=== PATIENT | male | born 1970 | race Caucasian/White ===

== ENCOUNTER 2020-06-10 20:36 | Inpatient (IN) ==
[2020-06-10] MEDS ORDERED: ACETAMINOPHEN 500 MG TABLET ONE (21:06)
[2020-06-10] MEDS ORDERED: CLINDAMYCIN INJ 600 MG in PREMIX 1 EACH IV STA (21:09)
[2020-06-10] MEDS ORDERED: ACETAMINOPHEN 500 MG TABLET PO STA (21:15)
[2020-06-10 21:49] LABS: Basophils # 0.1 10*3/uL (0.0-0.2); Basophils % 0.4 % (0.0-0.8); Hematocrit 43.2 VOL% (42.0-52.0); Hemoglobin 14.8 GM/DL (14.0-18.0); Immature Granulocytes % 0.4 %; Immature Granulocytes Absolute 0.06 #; Lymphocytes # 1.2 10*3/uL (1.4-4.0); Lymphocytes % 8.7 % (21.2-54.2); Mean Corpuscular HGB Conc 34.3 GM/DL (32-36); Mean Corpuscular Volume 94.5 FL (87-102); Monocytes % 4.9 % (1.7-12.7); Neutrophils % 85.6 % (38.7-73.9); Platelet Count 242 T/CUMM (130-400); Red Blood Count 4.57 MC/CUMM (3.8-5.5)
[2020-06-10 22:18] LABS: Albumin 3.8 G/DL (3.4-5.0); Bilirubin,Total 0.6 MG/DL (0.2-1.0); Calcium 8.6 MG/DL (8.5-10.1); Osmolality,Calculated 275.8 MOS/KG (273-304); Total Protein 7.1 G/DL (6.4-8.3)
[2020-06-10] MEDS ORDERED: VANCOMYCIN INJ 1,000 MG in SODIUM CHLORIDE 0.9% 250 ML IV STA (23:47)
[2020-06-10] MEDS ORDERED: VANCOMYCIN 1,000 MG VIAL ONE (23:48)
[2020-06-11] MEDS ORDERED: DEXTROSE 50% 25 GM/50 ML VIAL IV PRN (00:01)
[2020-06-11] MEDS ORDERED: GLUCAGON 1 MG VIAL IM PRN (00:01)
[2020-06-11] MEDS ORDERED: ALBUTEROL 2.5 MG/3 ML NEB RESP TX PRN (00:04)
[2020-06-11] MEDS ORDERED: TOPIRAMATE 100 MG TABLET PO PRN (00:04)
[2020-06-11] MEDS ORDERED: IBUPROFEN 600 MG TABLET ONE (00:12)
[2020-06-11] MEDS ORDERED: IBUPROFEN 600 MG TABLET PO STA (00:15)
[2020-06-11] MEDS: SODIUM CHLORIDE 0.9% 1,000 ML IV SCH ×3 (03:05→14:53)
[2020-06-11] MEDS: oxyCODONE/ACETAMINOPHEN 5-325 MG TABLET PO PRN ×3 (03:26→19:55)
[2020-06-11] MEDS: CLINDAMYCIN 150 MG CAPSULE PO SCH ×3 (05:55→21:45)
[2020-06-11 06:33] LABS: Basophils % 0.2 % (0.0-0.8); Eosinophils % 0.2 % (0.00-10.9); Hematocrit 40.5 VOL% (42.0-52.0); Hemoglobin 13.8 GM/DL (14.0-18.0); Immature Granulocytes % 0.5 %; Immature Granulocytes Absolute 0.06 #; Lymphocytes # 2.3 10*3/uL (1.4-4.0); Lymphocytes % 18.1 % (21.2-54.2); Mean Corpuscular HGB Conc 34.1 GM/DL (32-36); Mean Corpuscular Volume 94.6 FL (87-102); Mean Platelet Volume 11.2 FL (9.6-12.0); Platelet Count 196 T/CUMM (130-400); Red Blood Count 4.28 MC/CUMM (3.8-5.5); Red Cell Distribution Width 13.2 % (9.3-17.3); White Blood Count 12.8 T/CUMM (4-12)
[2020-06-11 06:47] LABS: Calcium 8.5 MG/DL (8.5-10.1); Osmolality,Calculated 279.7 MOS/KG (273-304)
[2020-06-11] MEDS: FLUTICASONE/SALMETEROL 250-50 DISKUS 14 DOSE INH SCH ×2 (09:23→20:05)
[2020-06-11] MEDS: ENOXAPARIN 40 MG/0.4 ML SYRINGE SUBCUT SCH (09:23)
[2020-06-11] MEDS: PANTOPRAZOLE 40 MG TABLET PO SCH (09:23)
[2020-06-11] MEDS: VANCOMYCIN INJ 1,500 MG in SODIUM CHLORIDE 0.9% 500 ML IV SCH ×2 (09:23→20:02)
[2020-06-11] MEDS: ACETAMINOPHEN 500 MG TABLET PO PRN ×2 (09:42→18:21)
[2020-06-11] MEDS: LEVOFLOXACIN INJ 750 MG in PREMIX 1 EACH IV SCH (16:33)
[2020-06-11] MEDS: ONDANSETRON 4 MG/2 ML VIAL IV PRN (20:01)
[2020-06-12] MEDS: SODIUM CHLORIDE 0.9% 1,000 ML IV SCH ×2 (03:44→16:27)
[2020-06-12] MEDS: oxyCODONE/ACETAMINOPHEN 5-325 MG TABLET PO PRN ×2 (05:04→14:59)
[2020-06-12 05:43] LABS: Basophils % 0.3 % (0.0-0.8); Eosinophils % 0.2 % (0.00-10.9); Hematocrit 40.8 VOL% (42.0-52.0); Hemoglobin 13.6 GM/DL (14.0-18.0); Immature Granulocytes % 0.5 %; Immature Granulocytes Absolute 0.06 #; Lymphocytes # 1.6 10*3/uL (1.4-4.0); Lymphocytes % 13.7 % (21.2-54.2); Mean Corpuscular HGB Conc 33.3 GM/DL (32-36); Mean Corpuscular Volume 96.2 FL (87-102); Mean Platelet Volume 11.1 FL (9.6-12.0); Monocytes % 5.6 % (1.7-12.7); Neutrophils % 79.7 % (38.7-73.9); Platelet Count 184 T/CUMM (130-400); Red Blood Count 4.24 MC/CUMM (3.8-5.5); Red Cell Distribution Width 13.2 % (9.3-17.3); White Blood Count 11.7 T/CUMM (4-12)
[2020-06-12 06:17] LABS: Calcium 8.8 MG/DL (8.5-10.1); Osmolality,Calculated 276.5 MOS/KG (273-304)
[2020-06-12] MEDS: CLINDAMYCIN 150 MG CAPSULE PO SCH (06:46)
[2020-06-12] MEDS ORDERED: ALBUTEROL 2.5 MG/3 ML NEB RESP TX ONE (08:00)
[2020-06-12] MEDS ORDERED: GABAPENTIN 400 MG CAPSULE PO ONE (08:00)
[2020-06-12] MEDS ORDERED: SCOPOLAMINE 1.5 MG PATCH TRANSDERM ONE (08:00)
[2020-06-12] MEDS ORDERED: DIAZEPAM 5 MG TABLET PO ONE (08:00)
[2020-06-12] MEDS: FLUTICASONE/SALMETEROL 250-50 DISKUS 14 DOSE INH SCH ×2 (09:39→21:48)
[2020-06-12] MEDS: VANCOMYCIN INJ 1,500 MG in SODIUM CHLORIDE 0.9% 500 ML IV SCH ×2 (09:39→20:59)
[2020-06-12] MEDS: ENOXAPARIN 40 MG/0.4 ML SYRINGE SUBCUT SCH (10:01)
[2020-06-12] MEDS: PANTOPRAZOLE 40 MG TABLET PO SCH (10:45)
[2020-06-12] MEDS ORDERED: KETOROLAC 30 MG/1 ML VIAL ONE (12:36)
[2020-06-12] MEDS ORDERED: MEPERIDINE 25 MG/1 ML VIAL ONE (12:45)
[2020-06-12] MEDS ORDERED: MEPERIDINE 25 MG/1 ML VIAL IV PRN (12:59)
[2020-06-12] MEDS ORDERED: KETOROLAC 30 MG/1 ML VIAL IV ONE (13:00)
[2020-06-12] MEDS: LEVOFLOXACIN INJ 750 MG in PREMIX 1 EACH IV SCH (16:25)
[2020-06-12] MEDS: ONDANSETRON 4 MG/2 ML VIAL IV PRN (20:58)
[2020-06-13] MEDS ORDERED: ALUM/MAG/SIMETH/LIDO VISC 1:1 30 ML BOTTLE PO ONE (00:30)
[2020-06-13] MEDS: ONDANSETRON 4 MG/2 ML VIAL IV PRN ×2 (02:40→19:35)
[2020-06-13 05:48] LABS: Basophils % 0.4 % (0.0-0.8); Eosinophils % 0.3 % (0.00-10.9); Hematocrit 38.2 VOL% (42.0-52.0); Hemoglobin 12.6 GM/DL (14.0-18.0); Immature Granulocytes % 0.4 %; Immature Granulocytes Absolute 0.04 #; Lymphocytes # 1.3 10*3/uL (1.4-4.0); Lymphocytes % 13.2 % (21.2-54.2); Mean Corpuscular Volume 98.2 FL (87-102); Mean Platelet Volume 11.1 FL (9.6-12.0); Monocytes % 5.9 % (1.7-12.7); Neutrophils % 79.8 % (38.7-73.9); Platelet Count 210 T/CUMM (130-400); Red Blood Count 3.89 MC/CUMM (3.8-5.5); Red Cell Distribution Width 13.2 % (9.3-17.3); White Blood Count 10.1 T/CUMM (4-12)
[2020-06-13] MEDS ORDERED: LIDOCAINE 2% 5 ML VIAL ONE (06:02)
[2020-06-13] MEDS ORDERED: ONDANSETRON 4 MG/2 ML VIAL ONE (06:02)
[2020-06-13] MEDS ORDERED: MIDAZOLAM 2 MG/2 ML VIAL ONE (06:02)
[2020-06-13] MEDS ORDERED: fentaNYL 100 MCG/2 ML VIAL ONE (06:02)
[2020-06-13] MEDS ORDERED: PHENYLEPHRINE 1 MG/10 ML SYRINGE IV ONE (06:02)
[2020-06-13] MEDS ORDERED: propofoL 200 MG/20 ML VIAL IV ONE (06:02)
[2020-06-13] MEDS ORDERED: DESFLURANE 1 UNIT/15 MINUTE INH ONE (06:02)
[2020-06-13] MEDS ORDERED: SUCCINYLCHOLINE 200 MG/10 ML VIAL ONE (06:03)
[2020-06-13 06:24] LABS: Calcium 8.6 MG/DL (8.5-10.1); Osmolality,Calculated 278.5 MOS/KG (273-304)
[2020-06-13] MEDS: SODIUM CHLORIDE 0.9% 1,000 ML IV SCH ×2 (07:32→20:50)
[2020-06-13] MEDS: PANTOPRAZOLE 40 MG TABLET PO SCH (09:26)
[2020-06-13] MEDS: ENOXAPARIN 40 MG/0.4 ML SYRINGE SUBCUT SCH (09:26)
[2020-06-13] MEDS: VANCOMYCIN INJ 2,000 MG in SODIUM CHLORIDE 0.9% 500 ML IV SCH ×2 (09:26→20:50)
[2020-06-13] MEDS: FLUTICASONE/SALMETEROL 250-50 DISKUS 14 DOSE INH SCH ×2 (09:26→20:51)
[2020-06-13] MEDS: oxyCODONE/ACETAMINOPHEN 5-325 MG TABLET PO PRN ×2 (09:29→19:34)
[2020-06-13] MEDS: LEVOFLOXACIN INJ 750 MG in PREMIX 1 EACH IV SCH (16:04)
[2020-06-14] MEDS: SODIUM CHLORIDE 0.9% 1,000 ML IV SCH (04:21)
[2020-06-14] MEDS: ENOXAPARIN 40 MG/0.4 ML SYRINGE SUBCUT SCH (08:44)
[2020-06-14] MEDS: PANTOPRAZOLE 40 MG TABLET PO SCH (08:44)
[2020-06-14] MEDS: FLUTICASONE/SALMETEROL 250-50 DISKUS 14 DOSE INH SCH (08:45)
[2020-06-14] MEDS: oxyCODONE/ACETAMINOPHEN 5-325 MG TABLET PO PRN (08:45)
[2020-06-14] MEDS: VANCOMYCIN INJ 2,000 MG in SODIUM CHLORIDE 0.9% 500 ML IV SCH (08:51)
[2020-06-14] MEDS ORDERED: LINACLOTIDE 145 MCG CAPSULE PO ONE (09:29)
[2020-06-14 11:48] VITALS: BP 123/66
== END 2020-06-14 14:10 | disposition home or self-care (01) | DRG 603 ==
LOC: N.EDINP 20:36 → N.ED 20:36 → OBSVTOIN 06-11 00:01 → N.EDINP 06-11 02:30 → N.3E 06-11 02:39
PROVIDERS: ADMIT Internal Medicine; ATTEND Internal Medicine